=== PATIENT | female | born 1985 | race American Indian/Alaskan Native ===

== ENCOUNTER 2018-08-16 12:27 | Outpatient (CLI) | payer MEDICAID ==
--- NOTE | 2018-08-16 14:28 | Mammography Report ---
BILATERAL DIGITAL DIAGNOSTIC MAMMOGRAM with CAD and LEFT BREAST ULTRASOUND: 08/16/18 CLINICAL: Bilateral breast pain and left milky discharge. COMPARISON:None. FINDINGS: The breasts are heterogeneously dense, which may obscure small masses.No mass, architectural distortion or suspicious calcifications. Ultrasound of the right breast (including all four quadrants and the retroareolar area) demonstrated no solid mass or suspicious shadowing. A benign cyst with internal echoes at 8 o'clock 7 cm from the nipple measures 4 x 3 x 3 mm. Ultrasound of the left breast (including all four quadrants and the retroareolar area) demonstrated normal fibroglandular and fatty structures. No mass, cyst or shadowing. No duct ectasia. IMPRESSION: Negative mammogram and negative left breast ultrasound.A benign 4 mm right breast cyst at 8 o'clock. No explanation for bilateral breast pain or left nipple discharge. BI-RADS CATEGORY: 2 -- Benign RECOMMENDATION: Clinical followup and routine mammographic screening based on ACS guidelines. COMMENT: Patient follow-up letters are generated by our [employer] application.
== END 2018-08-16 12:28 | disposition home or self-care (01) ==
LOC: MAMMO 12:27
PROVIDERS: ATTEND Advanced Practice Midwife
DX: N60.01 Solitary cyst of right breast (principal)
CPT/HCPCS: 77066